=== PATIENT | female | born 1945 | race Caucasian/White ===

== ENCOUNTER 2021-09-06 17:23 | Inpatient (IN) ==
--- NOTE | 2021-09-06 17:42 | Internal Medicine Consult Note ---
HPI Data of Consult Consult date: 09/06/21 Primary Care Provider: Chiqui Davis Consult Narrative History of present illness: Patient states he slipped on a rug wearing new shoes. No head trauma or loss of consciousness. No recent illnesses. Review of Systems: Pertinent positives above. Denies headache/fever/chills/nausea/vomiting/chest or abdominal pain/cough/dyspnea/diarrhea. Remaining 10 point review of system reviewed negative cc:: CC: PFSH PFSH All Active Problems (Updated 09/06/21 @ 19:40 by Terrence Mccullough MD) Closed right hip fracture (Acute) MEDS/ALLERGIES Home Medications and Allergies Home Medications Medication Instructions Recorded Confirmed Type Adults Multivitamin 1 tab 09/06/21 History ascorbic acid (vitamin C) 500 mg PO DAILY 09/06/21 09/06/21 History cholecalciferol (vitamin D3) 1,000 units PO DAILY 09/06/21 09/06/21 History cyanocobalamin (vitamin B-12) 1,000 mcg PO DAILY 09/06/21 09/06/21 History Allergies Allergy/AdvReac Type Severity Reaction Status Date / Time No Known Drug Allergies Allergy Unverified 09/06/21 17:24 EXAM Constitutional Vitals: Temp Pulse Resp BP Pulse Ox 97.6 F 65 18 144/121 95 09/06/21 17:24 09/06/21 17:24 09/06/21 17:24 09/06/21 17:24 09/06/21 17:24 Exam: General: Alert, Awake, No acute Distress, obese Eyes/N/T: EOMI, Head/Neck: neck supple, CV: RRR, No murmurs, normal s1/s2 Pulm: Clear b/l, no wheezing/rhonchi/rales Abd: soft, nontender, +BS x4 Ext: no clubbing/cyanosis/edema Neuro: Alert, no focal deficits, moves all extremities, Skin: warm/dry A/P Narrative A/P Narrative: A/P: *Right hip fracture: -per ortho -pt/ot -CM for placement *ppx: SCD and post-op per ortho Time Spent With Patient Time: Total time spent is greater than 50% in coordination of care (as documented) at patient's floor/unit and/or counseling patient: Total time spent with greater than 50% in coordination of care (as documented) at patient's floor/unit and/or counseling patient:: 35 - 50 minutes
--- NOTE | 2021-09-06 17:44 | Emergency Department Note ---
HPI General Chief complaint: Extremity Injury, Lower Stated complaint: right hip fracture Time Seen by Provider: 09/06/21 17:28 Source: patient and EMS Mode of arrival: EMS Limitations: no limitations History of Present Illness HPI Narrative: 76-year-old female with no past medical history who was transferred to the emergency department after she was seen in [place] earlier today. Patient fell last night and suffered a R intertrochanteric hip fracture. Dr. Santo was consulted and he recommend transfer to the ED for admission and operative repair. Patient states she does not take any medications. Denies hitting her head or other injuries. Related Data Home Medications Medication Instructions Recorded Confirmed Adults Multivitamin 1 tab 09/06/21 ascorbic acid (vitamin C) 500 mg PO DAILY 09/06/21 09/06/21 cholecalciferol (vitamin D3) 1,000 units PO DAILY 09/06/21 09/06/21 cyanocobalamin (vitamin B-12) 1,000 mcg PO DAILY 09/06/21 09/06/21 Allergies Allergy/AdvReac Type Severity Reaction Status Date / Time No Known Drug Allergies Allergy Unverified 09/06/21 17:24 Review of Systems ROS ROS Narrative: Narrative: Constitutional: Denies fever or chills Eyes: Denies vision change ENT ED: Denies throat pain Cardiovascular: Denies chest pain or palpitations Respiratory: Denies shortness of breath or cough Gastrointestinal: Denies abdominal pain, nausea or vomiting Genitourinary: Denies dysuria Musculoskeletal: Denies back pain Integumentary: Denies rash Neurological: Denies headache Psychiatric: Denies anxiety Endocrine: Denies fatigue Hematological/Lymphatic: Denies easy bruising PFSH Narrative Patient History Narrative: Narrative: Medical/Surgical/Family History All Active Problems (Updated 09/06/21 @ 19:40 by Terrence Mccullough MD) Closed right hip fracture (Acute) Social History Smoking Status: Never smoker Exam Narrative Narrative: Narrative: General Limitations: no limitations General appearance: Present alert and in no apparent distress Head Head: Present atraumatic and normocephalic Eye Eye: Present normal appearance, PERRL and EOMI; Absent scleral icterus or conjunctival injection ENT ENT: Present mucous membranes moist Neck Neck: Present normal inspection, full ROM and trachea midline; Absent tenderness Chest Chest: Present symmetric chest wall rise Respiratory Respiratory: Present normal lung sounds bilaterally; Absent respiratory distress, wheezes, stridor, accessory muscle use or prolonged expiratory phase Cardiovascular Cardiovascular: Present regular rate and normal rhythm; Absent systolic murmur or diastolic murmur Adbominal Abdominal: Present soft; Absent distention, tenderness, guarding, rebound, rigidity, organomegaly or mass Extremities Extremities: Absent pedal edema, pretibial edema or calf tenderness Expanded Lower Extremity Hip/Pelvis: Present other (TTP over the anterior and lateral R hip) Knee: Present normal inspection and full ROM; Absent tenderness Ankle: Present normal inspection and full ROM; Absent tenderness Neurovascular/Tendon: Present normal capillary refill; Absent pulse deficit or sensory deficit Neurological Neurological: Present alert, oriented X3 and CN II-XII intact; Absent motor sensory deficit Psychiatric Psychiatric: Present normal affect and normal mood Skin Skin: Present warm (WNL) and dry Course Consultations Consultation #1: Dr. Luque, hospitalist Time: 17:40 Vital Signs Vital signs: Vital Signs Temperature 97.6 F 09/06/21 17:24 Pulse Rate 65 09/06/21 17:24 Respiratory Rate 18 09/06/21 17:24 Blood Pressure 144/121 09/06/21 17:24 Pulse Oximetry (%) 95 09/06/21 17:24 Temperature 97.6 F 09/06/21 17:24 Pulse Rate 65 09/06/21 18:21 Respiratory Rate 18 09/06/21 17:24 Blood Pressure 137/73 09/06/21 18:17 Pulse Oximetry (%) 97 09/06/21 18:21 [facility] Narrative Medical decision making narrative: 76yo F p/w a R hip fracture. No other injuries. Labs obtained at outside hospital appear normal. CXR obtained in the ED which was normal. I spoke with orthopedic PANadir, who states patient does not need any additional imaging of the R hip. EKG with no ischemic changes. Patient endorsed to Dr. Luque for admission. Lab Data Lab results reviewed: Yes I reviewed the patient's lab results. Radiology Data Radiology results reviewed: Yes I reviewed the patient's radiology results. Radiology results narrative: Ordering Physician:Terrence Mccullough M.D. Date of Service:09/06/21 Procedure(s):XR chest 1V CLINICAL INFORMATION: Preop COMPARISON: None. TECHNIQUE: Portable FINDINGS: The heart size, mediastinum and pulmonary vessels are unremarkable. The lungs are clear. There are no effusions. The bones and soft tissues are within normal limits. IMPRESSION: Normal chest. Interpreted and Authenticated by: Leonardo Smith 09/06/21 EKG Data EKG #1: EKG attestation: Yes I reviewed and interpreted this EKG. and Yes There are no EKG findings of acute coronary syndrome EKG results narrative: NSR at [address] elevation or depression. Interpretation: no acute changes Discharge Plan Patient/Caregiver Discharge Instructions Pt seen by RESIDENTIAL INTERIOR DESIGNER/PA only: No Clinical Impression: Closed right hip fracture Patient Disposition: Xfer As Inpt ([facility]) Condition: Fair Discharge Date/Time: 09/06/21 18:25
--- NOTE | 2021-09-06 18:19 | XRay Report ---
CLINICAL INFORMATION: Preop COMPARISON: None. TECHNIQUE: Portable FINDINGS: The heart size, mediastinum and pulmonary vessels are unremarkable. The lungs are clear. There are no effusions. The bones and soft tissues are within normal limits. IMPRESSION: Normal chest. Interpreted and Authenticated by: Leonardo Smith 09/06/21
[2021-09-06] MEDS ORDERED: ceFAZolin 2 GM in DEXTROSE 5% IN WATER 50 ML IV SCH (18:30)
[2021-09-06] MEDS ORDERED: ceFAZolin 1 GM VIAL ONE (18:41)
[2021-09-06] MEDS ORDERED: LIDOCAINE HCL/PF 100 MG/5 ML SYRINGE IV ONE (19:05)
[2021-09-06] MEDS ORDERED: DEXAMETHASONE 10 MG/ML VIAL ONE (19:05)
[2021-09-06] MEDS ORDERED: MAGNESIUM SULFATE 2 GM/50 ML BAG IV ONE (19:05)
[2021-09-06] MEDS ORDERED: GLYCOPYRROLATE 0.2 MG/ML VIAL IV ONE (19:05)
[2021-09-06] MEDS ORDERED: KETAMINE 50 MG/ML Syringe (ANEST) IV ONE (19:05)
[2021-09-06] MEDS ORDERED: ONDANSETRON 4 MG/2 ML VIAL ONE (19:05)
[2021-09-06] MEDS ORDERED: TRANEXAMIC ACID 1,000 MG/10 ML VIAL ONE (19:05)
[2021-09-06] MEDS ORDERED: fentaNYL 100 MCG/2 ML VIAL IV ONE (19:05)
[2021-09-06] MEDS ORDERED: PROPOFOL 200 MG/20 ML VIAL IV ONE (19:05)
[2021-09-06] MEDS ORDERED: NALOXONE HCL 0.4 MG/ML VIAL IV PRN (20:05)
[2021-09-06] MEDS ORDERED: PROMETHAZINE 25 MG/ML VIAL IV PRN (20:05)
[2021-09-06] MEDS ORDERED: IPRATROPIUM/ALBUTEROL 3 ML AMPUL.NEB NEB PRN ×2 (20:05→21:16)
[2021-09-06] MEDS ORDERED: fentaNYL 100 MCG/2 ML VIAL IV PRN (20:05)
[2021-09-06] MEDS ORDERED: LACTATED RINGERS 250 ML IV PRN (20:05)
[2021-09-06] MEDS ORDERED: ACETAMINOPHEN 1,000 MG/100 ML BAG IV ONE (20:05)
[2021-09-06] MEDS ORDERED: MEPERIDINE 25 MG/ML VIAL IV PRN (20:05)
[2021-09-06] MEDS ORDERED: ONDANSETRON 4 MG/2 ML VIAL IV PRN ×2 (20:05→21:16)
[2021-09-06] MEDS ORDERED: METHOCARBAMOL 1,000 MG/10 ML VIAL IV PRN (20:05)
[2021-09-06] MEDS ORDERED: diphenhydrAMINE 50 MG/ML VIAL IV PRN (20:05)
[2021-09-06] MEDS ORDERED: LACTATED RINGERS 1,000 ML IV SCH (20:15)
[2021-09-06] MEDS ORDERED: FLEETS ADULT ENEMA PR PRN (20:30)
[2021-09-06] MEDS ORDERED: HYDROCODONE/APAP 7.5/325MG TABLET PO PRN (20:30)
[2021-09-06] MEDS ORDERED: BISACODYL 10 MG SUPP.RECT PR PRN (20:30)
[2021-09-06] MEDS ORDERED: POLYETHYLENE GLYCOL 3350 17 GM PACKET PO PRN ×2 (20:30→21:16)
[2021-09-06] MEDS ORDERED: MAGNESIUM HYDROXIDE 30 ML ORAL.SUSP PO PRN (20:30)
--- NOTE | 2021-09-06 20:30 | Brief Operative Note ---
Brief Operative Note Date of procedure: 09/06/21 Pre-op diagnosis: Right hip fracture Post-op diagnosis: same Procedure: Right hip hemiarthroplasty Grafts/Implants: Yes Anesthesia: GETA Complications: none Surgeon: Boogie Santo Flat Sorter Processor: Vinay Chairez Estimated blood loss (cc): 200 Condition: stable Disposition: PACU
[2021-09-06] MEDS ORDERED: MAGNESIUM SULFATE 2 GM/50 ML BAG IV PRN (21:16)
[2021-09-06] MEDS ORDERED: HYDROcodone/APAP 5/325MG TABLET PO PRN (21:16)
[2021-09-06] MEDS ORDERED: SENNOSIDES 1 TABLET PO PRN (21:16)
[2021-09-06] MEDS ORDERED: DOCUSATE SODIUM 100 MG CAPSULE PO SCH (21:16)
[2021-09-06] MEDS ORDERED: morphine 4 MG/ML VIAL IV PRN (21:16)
[2021-09-06] MEDS ORDERED: POTASSIUM CHLORIDE 20 MEQ TABLET PO PRN ×2 (21:16)
[2021-09-06] MEDS ORDERED: POTASSIUM CHLORIDE 40 MEQ in DEXTROSE 5% IN WATER 500 ML IV PRN (21:16)
[2021-09-06] MEDS: ASPIRIN 81 MG TAB.CHEW PO SCH (22:36)
[2021-09-06] MEDS: SENNOSIDES 1 TABLET PO SCH (22:36)
[2021-09-06] MEDS: DOCUSATE SODIUM 100 MG CAPSULE PO SCH (22:36)
[2021-09-06] MEDS: ACETAMINOPHEN 325 MG TABLET PO PRN (22:36)
[2021-09-06] MEDS: 0.9 % SODIUM CHLORIDE 10 ML SYRINGE IV SCH (22:37)
[2021-09-06] MEDS: ceFAZolin 1 GM VIAL IV SCH (23:39)
[2021-09-07] MEDS: ceFAZolin 1 GM VIAL IV SCH ×2 (02:51→11:47)
[2021-09-07] MEDS: 0.9 % SODIUM CHLORIDE 10 ML SYRINGE IV SCH ×3 (05:24→20:39)
[2021-09-07 06:38] LABS: Basophils # (Auto) 0.01 K/mcL (0.00-0.30); Basophils % (Auto) 0.1 % (0.0-2.0); Eosinophils # (Auto) 0 K/mcL (0.00-0.70); Eosinophils % (Auto) 0 % (0.0-7.0); Hematocrit 39.9 % (34.1-44.9); Hemoglobin 13.7 g/dL (11.2-15.7); Lymphocytes # (Auto) 0.35 K/mcL (1.50-4.80); Lymphocytes % (Auto) 4.6 % (15.5-49.0); Mean Cell Volume 90.1 fL (80.0-100.0); Mean Corpuscular HGB Conc 34.3 g/dL (31.0-36.0); Mean Platelet Volume 9.6 fL (7.4-10.4); Monocytes # (Auto) 0.24 K/mcL (0.10-0.90); Monocytes % (Auto) 3.2 % (1.0-12.0); Neutrophils % (Auto) 92.1 % (38.0-78.0); Platelet Count 168 K/mcL (140-440); RBC 4.43 M/mcL (3.59-5.38); Red Cell Distribution Width 12.5 % (11.5-14.5); WBC 7.6 K/mcL (4.5-11.0)
[2021-09-07 06:50] LABS: Prothrombin Time 13.4 sec (11.9-14.5)
[2021-09-07 07:03] LABS: ALT/SGPT 16 U/L (<40); AST/SGOT 27 U/L (<32); Albumin 3.6 gm/dL (3.2-5.2); Albumin/Globulin Ratio 1.4 (1.0-2.3); Alkaline Phosphatase 65 U/L (39-117); Bilirubin,Direct < 0.2 mg/dL (0-0.3); Bilirubin,Total 0.4 mg/dL (0.1-1.0); Blood Urea Nitrogen 9 mg/dL (8-23); Calcium 8.6 mg/dL (8.6-10.4); Carbon Dioxide 21 mmol/L (22-30); Chloride 102 mmol/L (96-108); Globulin 2.6 gm/dL (2.2-3.7); Glomerular Filtration Rate 87; Glucose 164 mg/dL (70-105); Lactate Dehydrogenase 242 U/L (135-225); Phosphorous 2.3 mg/dL (2.5-4.5); Triglycerides 88 mg/dL (<150); Uric Acid 5.2 mg/dL (2.5-8.0)
[2021-09-07] MEDS: ASPIRIN 81 MG TAB.CHEW PO SCH ×2 (07:31→20:39)
[2021-09-07] MEDS: DOCUSATE SODIUM 100 MG CAPSULE PO SCH ×2 (07:32→20:39)
--- NOTE | 2021-09-07 08:26 | Internal Med Progress Note ---
SUBJECTIVE Subjective Patient information: Note initiated : 09/07/21 at 8:25 am Service Date, if different from initiated Date: [] Patient: Liliana Hidalgo 76 y/o F admitted on 09/06/21 for right hip fracture. Chief Complaint: [] Interval history: Patient states he slipped on a rug wearing new shoes. No head trauma or loss of consciousness. No recent illnesses. Seen in [place] and [facility] Dr. Santo was contacted for or thopedic surgery. 09/07 Status post ORIF no new complaints overnight events. Constitutional Vitals: Vital Signs Temp Pulse Resp BP Pulse Ox 97.4 F 66 16 101/67 90 09/07/21 07:17 09/07/21 07:17 09/07/21 07:09/07/21 07:09/07/21 07:17 Period Temp Pulse Resp BP Sys/Gonzales Pulse Ox Last 24 Hr 96.6 F-98.7 F 51-73 11-18 101-146/62-121 90-98 Intake and Output 09/06/21 09/07/21 09/07/21 21:59 05:59 13:59 Intake Total 2150 500 Output Total 275 1350 Balance 1875 -850 Weight 92.986 kg Intake & Output: Intake & Output 09/06/21 09/07/21 09/07/21 21:59 05:59 13:59 Intake Total 2150 500 Output Total 275 1350 Balance 1875 -850 Weight 92.986 kg Intake: IV 150 Ancef 2 gm In Dextrose 5% in 50 Water 50 ml @ 100 mls/hr IV PREOP [facility] Rx#:[id number] Oral 500 IV - Manual Only 1999 Output: Urine Catheter Amount 275 1350 Other: Urine Appearance Clear Clear Uretheral (Howard) Clear Urine Color Bright Yellow Bright Yellow Uretheral (Howard) Bright Yellow Exam: General: Alert, Awake, No acute Distress, obese Eyes/N/T: EOMI, Head/Neck: neck supple, CV: RRR, No murmurs, Pulm: Clear b/l, no wheezing/rhonchi/rales Abd: soft, nontender, +BS x4 Ext: no clubbing/cyanosis/edema Neuro: Alert, no focal deficits, moves all extremities, Skin: warm/dry OBJ DATA Labs CBC & Chem 7: 05/18/22 05:21 09/07/21 05:21 Labs: Abnormal Lab Results 09/07/21 09/07/21 05:21 05:21 Neut % (Auto) 92.1 H Lymph % (Auto) 4.6 L Lymph # (Auto) 0.35 L Carbon Dioxide 21 L Glucose 164 H Phosphorus 2.3 L Lactate Dehydrogenase 242 H Meds: Medications Acetaminophen (Acetaminophen 325 Mg Tablet) 650 mg PO Q6HP PRN; Protocol PRN Reason: Per Pain Protocol/Fever > 101 Last Admin: 09/06/21 22:36 Dose: 650 mg Documented by: Hydrocodone Bitart/Acetaminophen (Hydrocodone/Apap 7.5/325mg Tablet) 0 tab PO Q4HP PRN; Protocol PRN Reason: Per Pain Protocol Last Admin: 09/07/21 07:31 Dose: 1 tab Documented by: Albuterol/Ipratropium (Ipratropium/Albuterol 3 Ml Ampul.Neb) 3 ml NEB Q4HP PRN PRN Reason: Shortness Of Breath Ascorbic Acid (Ascorbic Acid 500 Mg Tablet) 500 mg PO DAILY [facility] Aspirin (Aspirin 81 Mg Tab.Chew) 81 mg PO BID [facility] Last Admin: 09/07/21 07:31 Dose: 81 mg Documented by: Bisacodyl (Bisacodyl 10 Mg Supp.Rect) 10 mg KY Q2-3DAYS PRN PRN Reason: Constipation Cefazolin Sodium (Cefazolin 1 Gm Vial) 1 gm IV Q8H [facility] Stop: 09/07/21 11:01 Last Admin: 09/07/21 02:51 Dose: 1 gm Documented by: Cyanocobalamin (Cyanocobalamin (Vitamin B-12) 500 Mcg Tablet) 1,000 mcg PO DAILY [facility] Docusate Sodium (Docusate Sodium 100 Mg Capsule) 100 mg PO BID [facility] Last Admin: 09/07/21 07:32 Dose: 100 mg Documented by: Potassium Chloride 40 meq/ (Dextrose) 520 mls @ 130 mls/hr IV UD PRN PRN Reason: Potassium < 3 Magnesium Sulfate (Magnesium Sulfate) 2 gm in 50 mls @ 50 mls/hr IV UD PRN PRN Reason: Magnesium </= 1.6 Magnesium Hydroxide (Magnesium Hydroxide 30 Ml Oral.Susp) 30 ml PO BIDP PRN PRN Reason: Constipation Morphine Sulfate (Morphine 4 Mg/Ml Vial) 0 mg IV Q3HP PRN PRN Reason: Pain Ondansetron HCl (Ondansetron 4 Mg/2 Ml Vial) 4 mg IV Q4HP PRN PRN Reason: Nausea And Vomiting Polyethylene Glycol (Polyethylene Glycol 3350 17 Gm Packet) 17 gm PO DAILYP PRN PRN Reason: Constipation Potassium Chloride (Potassium Chloride 20 Meq Tablet) 40 meq PO UD PRN PRN Reason: Potssium is 3-3.5 Potassium Chloride (Potassium Chloride 20 Meq Tablet) 40 meq PO UD PRN PRN Reason: Potassium < 3 Senna (Sennosides 1 Tablet) 2 tab PO HS [facility] Last Admin: 09/06/21 22:36 Dose: 2 tab Documented by: Senna (Sennosides 1 Tablet) 2 tab PO DAILYP PRN PRN Reason: Constipation Sodium Biphosphate/Sodium Phosphate (Fleets Adult Enema) 1 dose KY Q3-4DAYS PRN PRN Reason: Constipation Sodium Chloride (0.9 % Sodium Chloride 10 Ml Syringe) 10 ml IV Q8 [facility] Last Admin: 09/07/21 05:24 Dose: 10 ml Documented by: Vitamin D (Vitamin D3 25 Mcg Tablet) 25 mcg PO DAILY [facility] A/P Narrative A/P Narrative: A/P: *Right hip fracture: s/p ORIF (09/06) -per ortho -pt/ot -CM for placement *Obese: *ppx: SCD and post-op per ortho Time Spent With Patient Time: Total time spent is greater than 50% in coordination of care (as documented) at patient's floor/unit and/or counseling patient: QUALITY VTE Deep Vein Thrombosis/Pulmonary Embolism Present on Admission: No
--- NOTE | 2021-09-07 08:32 | Operative Note ---
DATE OF OPERATION: 09/06/2021 PREOPERATIVE DIAGNOSIS: Right femoral neck fracture, transcervical, displaced. POSTOPERATIVE DIAGNOSIS: Right femoral neck fracture, transcervical, displaced. OPERATION PROPOSED: Right hip hemiarthroplasty. OPERATION PERFORMED: Right hip hemiarthroplasty. SURGEON: Boogie Santo M.D. APPRENTICE/LINEMAN: Vinay Chairez PA-C. The PA's assistance was required for the safe and efficient completion of the entire case. This provider's expertise and technical skill were required throughout the case. The PA assisted with preoperative coordination, intraoperative retraction, wound closure, dressing and splint application, as well as postoperative documentation and care coordination. ESTIMATED BLOOD LOSS: 200 mL. INDICATIONS: This is an elderly lady with a displaced femoral neck fracture in need of operative treatment. PROCEDURE IN DETAIL: Informed consent was obtained. She was taken to the operating room and provided appropriate anesthetic and prophylactic antibiotics. She was carefully positioned. A standard posterior approach to the hip was performed. I dissected through the iliotibial band. I cut and released short external rotators. The hip capsule was cut and T'd. Femoral neck cut was refined. I lateralized the approach. I entered the canal and lateralized the approach. I reamed and broached. I then cemented in place a size 6 stem from [employer]. This was paired with a neutral neck and appropriately-sized head ball. The wounds were irrigated thoroughly. I closed the hip capsule with Ethibond 2-0 inverted deep dermal. The iliotibial band was closed with a #1 Vicryl and a Stratafix 2-0 inverted deep dermal and coretta in the skin. The procedure was tolerated well. No complications. GDD:rocio Job ID: [id number] Doc ID: [id number] Boogie Santo MD
--- NOTE | 2021-09-07 08:32 | History and Physical Report ---
DATE OF ADMISSION: 09/06/2021 CHIEF COMPLAINT: Right hip pain. HISTORY OF PRESENT ILLNESS: This is a 76-year-old female who presents to the emergency department complaining of right hip pain after sustaining a fall yesterday evening. We were consulted by the emergency physician of [facility] with the reported right hip fracture. The patient was then transported to [facility] Emergency Department and the patient denies any loss of consciousness prior to the fall. Denies any associated symptoms. She does report early significant pain which occurred mainly after the fall and she is unable to bear weight on the right hip following this fall. MEDICATIONS: Include, multivitamin daily, vitamin C 500 mg p.o. daily, vitamin D3 at 1000 units p.o. daily, and vitamin B12 at 1000 mcg p.o. daily. ALLERGIES: No known drug allergies. REVIEW OF SYSTEMS: Negative except as noted in the HPI. PAST MEDICAL HISTORY: Noncontributory. SOCIAL HISTORY: The patient denies any significant alcohol use. Denies tobacco use or recreational drug use. PHYSICAL EXAMINATION: VITAL SIGNS: Blood pressure is 144/21, pulse is 65, respirations 18, temperature 97.6 degrees Fahrenheit, and the pulse ox 95% on room air. GENERAL: The patient appears comfortable, resting supine currently in her bed. Does not appear to be in any significant distress. HEENT: Head is normocephalic, atraumatic. ENT is otherwise unremarkable. ABDOMEN: Soft, nontender, nondistended. Bowel sounds are present in all 4 quadrants. CARDIOVASCULAR: Heart has regular rate and rhythm without murmur. RESPIRATORY: Lungs are clear to auscultation bilaterally without any wheezes, rhonchi, or rales. NEUROVASCULAR: The patient is alert and oriented x3. Does not have any neurovascular deficits. MUSCULOSKELETAL: Right hip inspection reveals an externally rotated hip with some shortening. The range of motion of hip is limited due to fairly severe tenderness to palpation in the groin over the hip. Right lower extremity neurovascularly intact. IMAGING: Radiographs of the right hip reveal a slightly displaced impacted femoral neck fracture. ASSESSMENT: Right minimally displaced and impacted femoral neck fracture. PLAN: After discussing treatment options with the patient, we will plan to proceed with a right hip hemiarthroplasty. Risks, complications, possible limitations were discussed with the patient. She would like to proceed with surgery. Dr. Santo was consulted and agrees with this plan. We will plan to admit the patient and we will follow her postoperatively. HWIT:annamarie Job ID: [id number] Doc ID: [id number] Vinay Chairez PA-C
[2021-09-07] MEDS: CYANOCOBALAMIN (VITAMIN B-12) 500 MCG TABLET PO SCH (10:12)
[2021-09-07] MEDS: VITAMIN D3 25 MCG TABLET PO SCH (10:12)
[2021-09-07] MEDS: ASCORBIC ACID 500 MG TABLET PO SCH (10:12)
[2021-09-07] MEDS: ACETAMINOPHEN 325 MG TABLET PO PRN (17:47)
--- NOTE | 2021-09-07 18:56 | General Surgery Progress Note ---
SUBJECTIVE Subjective Patient information: Note initiated : 09/07/21 at 6:55 pm Service Date, if different from initiated Date: [] Patient: Liliana Hidalgo 76 y/o F admitted on 09/06/21 for right hip fracture. Chief Complaint: [] Principal diagnosis: right hip fracture Constitutional Vitals: Vital Signs Temp Pulse Resp BP Pulse Ox 97.3 F 74 14 123/63 94 09/07/21 16:00 09/07/21 16:00 09/07/21 16:00 09/07/21 16:00 09/07/21 16:00 Period Temp Pulse Resp BP Sys/Gonzales Pulse Ox Last 24 Hr 96.6 F-98.7 F 51-74 11-17 101-142/62-104 90-98 Intake and Output 09/07/21 09/07/21 09/07/21 05:59 13:59 21:59 Intake Total 500 1400 1200 Output Total 1350 200 Balance -850 1200 1200 Intake & Output: Intake & Output 09/07/21 09/07/21 09/07/21 05:59 13:59 21:59 Intake Total 500 1400 1200 Output Total 1350 200 Balance -850 1200 1200 Intake: Oral 500 1400 1200 Output: Urine Catheter Amount 1350 200 Other: Meal Breakfast Dinner Percent of Meal Consumed 100% 100% Feeding Ability Independent Independent Urine Appearance Clear Clear Clear Uretheral (Howard) Clear Urine Color Bright Yellow Pale Bright Yellow Uretheral (Howard) Pale Urine Odor Normal # Voids 1 A/P Narrative A/P Narrative: post hemiarthroplasty Plan of Treatment: mobilize, dc planning Time Spent With Patient Time: Total time spent is greater than 50% in coordination of care (as documented) at patient's floor/unit and/or counseling patient: Total time spent with greater than 50% in coordination of care (as documented) at patient's floor/unit and/or counseling patient:: less than 15 minutes
[2021-09-07] MEDS: SENNOSIDES 1 TABLET PO SCH (20:39)
[2021-09-08] MEDS: 0.9 % SODIUM CHLORIDE 10 ML SYRINGE IV SCH ×3 (05:50→20:35)
[2021-09-08 07:27] LABS: Hematocrit 38.8 % (34.1-44.9); Hemoglobin 13.1 g/dL (11.2-15.7)
[2021-09-08 08:08] LABS: Prothrombin Time 13.2 sec (11.9-14.5)
--- NOTE | 2021-09-08 08:18 | Internal Med Progress Note ---
SUBJECTIVE Subjective Patient information: Note initiated : 09/08/21 at 8:18 am Service Date, if different from initiated Date: [] Patient: Liliana Hidlago 76 y/o F admitted on 09/06/21 for right hip fracture. Chief Complaint: [] Principal diagnosis: right hip fracture Interval history: Patient states he slipped on a rug wearing new shoes. No head trauma or loss of consciousness. No recent illnesses. Seen in [place] and transferred to [facility]. Dr. Santo was contacted for orthopedic surgery. 09/07 Status post ORIF no new complaints overnight events. 09/08 Patient states poor sleep and feeling tired this morning. Does not feel like doing much with physical therapy. Review of Systems: denies headache/fever/chills/nausea/vomiting/chest or abdominal pain/cough/dyspnea/diarrhea. Otherwise see above. Constitutional Vitals: Vital Signs Temp Pulse Resp BP Pulse Ox 97.7 F 80 16 107/68 89 L 09/08/21 07:38 09/08/21 07:38 09/08/21 07:38 09/08/21 07:38 09/08/21 07:38 Period Temp Pulse Resp BP Sys/Gonzales Pulse Ox Last 24 Hr 97.3 F-98.7 F 65-80 14-17 106-123/63-74 89-94 Intake and Output 09/07/21 09/08/21 09/08/21 21:59 05:59 13:59 Intake Total 1200 300 Output Total 325 352 Balance 875 -52 Weight 90.446 kg Intake & Output: Intake & Output 09/07/21 09/08/21 09/08/21 21:59 05:59 13:59 Intake Total 1200 300 Output Total 325 352 Balance 875 -52 Weight 90.446 kg Intake: Oral 1200 300 Output: Void Amount 325 350 # of times incontinent of urine 2 Other: Meal Dinner Percent of Meal Consumed 100% Feeding Ability Independent Urine Appearance Clear Clear Urine Color Bright Yellow Bright Yellow Urine Odor Normal # Voids 1 1 Exam: General: Alert, Awake, No acute Distress, obese Eyes/N/T: EOMI, Head/Neck: neck supple, CV: RRR, No murmurs, Pulm: Clear b/l, no wheezing/rhonchi/rales Abd: soft, nontender, +BS x4 Ext: no clubbing/cyanosis/edema Neuro: Alert, no focal deficits, moves all extremities, Skin: warm/dry OBJ DATA Labs CBC & Chem 7: 09/08/21 05:25 09/07/21 05:21 Labs: Abnormal Lab Results 09/07/21 09/07/21 05:21 05:21 Neut % (Auto) 92.1 H Lymph % (Auto) 4.6 L Lymph # (Auto) 0.35 L Carbon Dioxide 21 L Glucose 164 H Phosphorus 2.3 L Lactate Dehydrogenase 242 H Meds: Medications Acetaminophen (Acetaminophen 325 Mg Tablet) 650 mg PO Q6HP PRN; Protocol PRN Reason: Per Pain Protocol/Fever > 101 Last Admin: 09/07/21 17:47 Dose: 650 mg Documented by: Hydrocodone Bitart/Acetaminophen (Hydrocodone/Apap 7.5/325mg Tablet) 0 tab PO Q4HP PRN; Protocol PRN Reason: Per Pain Protocol Last Admin: 09/07/21 07:31 Dose: 1 tab Documented by: Albuterol/Ipratropium (Ipratropium/Albuterol 3 Ml Ampul.Neb) 3 ml NEB Q4HP PRN PRN Reason: Shortness Of Breath Ascorbic Acid (Ascorbic Acid 500 Mg Tablet) 500 mg PO DAILY [facility] Last Admin: 09/07/21 10:12 Dose: Not Given Documented by: Aspirin (Aspirin 81 Mg Tab.Chew) 81 mg PO BID [facility] Last Admin: 09/07/21 20:39 Dose: 81 mg Documented by: Bisacodyl (Bisacodyl 10 Mg Supp.Rect) 10 mg ID Q2-3DAYS PRN PRN Reason: Constipation Cyanocobalamin (Cyanocobalamin (Vitamin B-12) 500 Mcg Tablet) 1,000 mcg PO DAILY [facility] Last Admin: 09/07/21 10:12 Dose: Not Given Documented by: Docusate Sodium (Docusate Sodium 100 Mg Capsule) 100 mg PO BID [facility] Last Admin: 09/07/21 20:39 Dose: 100 mg Documented by: Potassium Chloride 40 meq/ (Dextrose) 520 mls @ 130 mls/hr IV UD PRN PRN Reason: Potassium < 3 Magnesium Sulfate (Magnesium Sulfate) 2 gm in 50 mls @ 50 mls/hr IV UD PRN PRN Reason: Magnesium </= 1.6 Magnesium Hydroxide (Magnesium Hydroxide 30 Ml Oral.Susp) 30 ml PO BIDP PRN PRN Reason: Constipation Morphine Sulfate (Morphine 4 Mg/Ml Vial) 0 mg IV Q3HP PRN PRN Reason: Pain Ondansetron HCl (Ondansetron 4 Mg/2 Ml Vial) 4 mg IV Q4HP PRN PRN Reason: Nausea And Vomiting Polyethylene Glycol (Polyethylene Glycol 3350 17 Gm Packet) 17 gm PO DAILYP PRN PRN Reason: Constipation Potassium Chloride (Potassium Chloride 20 Meq Tablet) 40 meq PO UD PRN PRN Reason: Potssium is 3-3.5 Potassium Chloride (Potassium Chloride 20 Meq Tablet) 40 meq PO UD PRN PRN Reason: Potassium < 3 Senna (Sennosides 1 Tablet) 2 tab PO HS [facility] Last Admin: 09/07/21 20:39 Dose: 2 tab Documented by: Senna (Sennosides 1 Tablet) 2 tab PO DAILYP PRN PRN Reason: Constipation Sodium Biphosphate/Sodium Phosphate (Fleets Adult Enema) 1 dose ID Q3-4DAYS PRN PRN Reason: Constipation Sodium Chloride (0.9 % Sodium Chloride 10 Ml Syringe) 10 ml IV Q8 [facility] Last Admin: 09/08/21 05:50 Dose: 10 ml Documented by: Vitamin D (Vitamin D3 25 Mcg Tablet) 25 mcg PO DAILY [facility] Last Admin: 09/07/21 10:12 Dose: Not Given Documented by: A/P Narrative A/P Narrative: A/P: *Right hip fracture: s/p ORIF (09/06) -per ortho -pt/ot -CM for placement *Obese: *ppx: SCD and post-op per ortho Plan of Treatment: mobilize, dc planning Time Spent With Patient Time: Total time spent is greater than 50% in coordination of care (as documented) at patient's floor/unit and/or counseling patient: [facility]AL[facility] VTE Deep Vein Thrombosis/Pulmonary Embolism Present on Admission: No
[2021-09-08] MEDS: ASPIRIN 81 MG TAB.CHEW PO SCH ×2 (08:50→20:33)
[2021-09-08] MEDS: ASCORBIC ACID 500 MG TABLET PO SCH (08:50)
[2021-09-08] MEDS: ACETAMINOPHEN 325 MG TABLET PO PRN ×3 (08:50→20:33)
[2021-09-08] MEDS: CYANOCOBALAMIN (VITAMIN B-12) 500 MCG TABLET PO SCH (08:50)
[2021-09-08] MEDS: VITAMIN D3 25 MCG TABLET PO SCH (08:50)
[2021-09-08] MEDS: DOCUSATE SODIUM 100 MG CAPSULE PO SCH ×2 (08:50→20:33)
--- NOTE | 2021-09-08 10:38 | Discharge Summary ---
Discharge Provider Provider Patient information: Note initiated : 09/08/21 at 10:37 am Service Date, if different from initiated Date: [] Patient: Liliana Hidalgo 76 y/o F admitted on 09/06/21 for right hip fracture. Chief Complaint: [] Date of admission: 09/06/21 21:05 Discharge date: 09/09/21 Primary care physician: Chiqui Davis Consults: 09/06/21 Consult to Physician [CONS] Stat Comment: Consulting Provider: Pop Luque Reason For Exam: Physician to Consult 09/06/21 17:33 Consult to Physician [CONS] Stat Comment: Consulting Provider: Boogie Santo Reason For Exam: Physician to Consult Discharge Meds Discharge Medications Home Medications Adults Multivitamin 1 tab PO QDAY 09/06/21 [History Confirmed 09/06/21 Last Taken 09/04/21 08:00] aspirin 81 mg chewable tablet 81 mg PO BID #60 tab 09/09/21 [Rx Last Taken Unknown] COURSE Hospital Course Hospital course: Interval history: Patient states he slipped on a rug wearing new shoes. No head trauma or loss of consciousness. No recent illnesses. Seen in [place] and transferred to [facility]. Dr. Santo was contacted for orthopedic surgery. 09/07 Status post ORIF no new complaints overnight events. 09/08 Patient states poor sleep and feeling tired this morning. Does not feel like doing much with physical therapy. 09/09 No overnight event or new complaints. Patient stable for discharge A/P: *Right hip fracture: s/p ORIF (09/06) -per ortho -pt/ot -CM for placement *Obese: Discharge diagnosis: Right hip fracture Secondary discharge diagnosis: Obesity Time Spent with Patient Time attestation: Total time spent providing and/or coordinating discharge services: Time spent: Greater than 30 minutes EXAM Constitutional Vitals: Temp Pulse Resp BP Pulse Ox 97.7 F 80 16 107/68 89 L 09/08/21 07:38 09/08/21 07:38 09/08/21 07:38 09/08/21 07:38 09/08/21 07:38 Discharge Data Data Completed and Pending Labs on day of discharge: Labs from last 24 hours 09/08/21 09/08/21 05:25 05:25 Hgb 13.1 Hct 38.8 PT 13.2 INR 1.0 Discharge Plan Patient/Caregiver Discharge Instructions Activity: ambulate only with your walker and increase activity as tolerated Diet: Regular Diet Prescriptions: New aspirin 81 mg Tablet,Chewable 81 mg PO BID Qty: 60 0RF Continued Adults Multivitamin 1 tab PO QDAY 0RF Follow Up Plan Follow up with: Chiqui Davis MD [Primary Care Provider] - Patient Disposition: Xfer SNF Care Plan Goals: progressive mobilization WBAT Hospital Course: uneventful Plan of Treatment: mobilize, dc planning Prognosis: Fair Rehab Potential: Fair I certify that the patient requires SNF services: Yes Overall status at discharge: patient is progressing back to baseline Discharge Orders: Discharge Order (Routine); Ordered 09/09/21 Ordered By: Pop Luque [facility] VTE Deep Vein Thrombosis/Pulmonary Embolism Present on Admission: No
--- NOTE | 2021-09-08 11:44 | EKG ---
[facility] Test Date: 2021-09-06 Pat Name: Liliana Hidalgo Department: ED Room: Gender: Female Bench Assembler: : 1945 Requested By: Terrence Mccullough Order Number: [id number] Reading MD: Leonardo Paredes M.D. Measurements Intervals [place] Rate: 65 P: 32 AK: 170 QRS: -48 QRSD: 98 T: 23 QT: 449 QTc: 467 Interpretive Statements Sinus rhythm Left anterior fascicular block Borderline T wave abnormalities Electronically Signed On 09-08-2021 11:43:46 PDT by Leonardo Paredes M.D. /store/[email or web address]/[id number]
--- NOTE | 2021-09-08 17:30 | Orthopedic Progress Note ---
SUBJECTIVE Subjective Patient information: Note initiated : 09/08/21 at 5:27 pm Service Date, if different from initiated Date: [] Patient: Liliana Hidalgo 76 y/o F admitted on 09/06/21 for right hip fracture. Chief Complaint: [] Principal diagnosis: right hip fracture Interval history: POD 2 s/p right hip hemiarthroplasty, doing well, ready to go home or to SNF. She denies any CP, SUN, nausea, vomiting, fever, or any other acute symptoms. Constitutional Vitals: Vital Signs Temp Pulse Resp BP Pulse Ox 100.2 F H 87 18 107/68 96 09/08/21 17:05 09/08/21 17:05 09/08/21 17:05 09/08/21 17:05 09/08/21 17:05 Period Temp Pulse Resp BP Sys/Gonzales Pulse Ox Last 24 Hr 97.0 F-100.2 F 65-87 14-18 90-110/56-68 89-96 Intake and Output 09/08/21 09/08/21 09/08/21 05:59 13:59 21:59 Intake Total 300 800 Output Total 352 600 Balance -52 200 Weight 199 lb 6.4 oz Patient Weight 09/09/21 05:59 Weight 199 lb 6.4 oz Intake & Output: Intake & Output 09/08/21 09/08/21 09/08/21 05:59 13:59 21:59 Intake Total 300 800 Output Total 352 600 Balance -52 200 Weight 199 lb 6.4 oz Intake: Oral 300 800 Output: Void Amount 350 600 # of times incontinent of urine 2 Other: Meal Lunch Percent of Meal Consumed 100% Urine Appearance Clear Urine Color Bright Yellow Bright Yellow Stool Size Moderate Stool Color Brown # Voids 1 # Bowel Movements 1 Exam: Exam of the right hip reveals dressings dry and intact, NVI in the entire RLE, no calf tenderness OBJ DATA Labs CBC & Chem 7: 09/08/21 05:25 09/07/21 05:21 Labs: Abnormal Lab Results 09/07/21 09/07/21 05:21 05:21 Neut % (Auto) 92.1 H Lymph % (Auto) 4.6 L Lymph # (Auto) 0.35 L Carbon Dioxide 21 L Glucose 164 H Phosphorus 2.3 L Lactate Dehydrogenase 242 H Meds: Medications Acetaminophen (Acetaminophen 325 Mg Tablet) 650 mg PO Q6HP PRN; Protocol PRN Reason: Per Pain Protocol/Fever > 101 Last Admin: 09/08/21 14:02 Dose: 650 mg Documented by: Hydrocodone Bitart/Acetaminophen (Hydrocodone/Apap 7.5/325mg Tablet) 0 tab PO Q4HP PRN; Protocol PRN Reason: Per Pain Protocol Last Admin: 09/07/21 07:31 Dose: 1 tab Documented by: Albuterol/Ipratropium (Ipratropium/Albuterol 3 Ml Ampul.Neb) 3 ml NEB Q4HP PRN PRN Reason: Shortness Of Breath Ascorbic Acid (Ascorbic Acid 500 Mg Tablet) 500 mg PO DAILY [facility] Last Admin: 09/08/21 08:50 Dose: 500 mg Documented by: Aspirin (Aspirin 81 Mg Tab.Chew) 81 mg PO BID [facility] Last Admin: 09/08/21 08:50 Dose: 81 mg Documented by: Bisacodyl (Bisacodyl 10 Mg Supp.Rect) 10 mg [place] Q2-3DAYS PRN PRN Reason: Constipation Cyanocobalamin (Cyanocobalamin (Vitamin B-12) 500 Mcg Tablet) 1,000 mcg PO DAILY [facility] Last Admin: 09/08/21 08:50 Dose: 1,000 mcg Documented by: Docusate Sodium (Docusate Sodium 100 Mg Capsule) 100 mg PO BID [facility] Last Admin: 09/08/21 08:50 Dose: 100 mg Documented by: Potassium Chloride 40 meq/ (Dextrose) 520 mls @ 130 mls/hr IV UD PRN PRN Reason: Potassium < 3 Magnesium Sulfate (Magnesium Sulfate) 2 gm in 50 mls @ 50 mls/hr IV UD PRN PRN Reason: Magnesium </= 1.6 Magnesium Hydroxide (Magnesium Hydroxide 30 Ml Oral.Susp) 30 ml PO BIDP PRN PRN Reason: Constipation Melatonin (Melatonin 3 Mg Tablet) 3 mg PO QHS [facility] Morphine Sulfate (Morphine 4 Mg/Ml Vial) 0 mg IV Q3HP PRN PRN Reason: Pain Ondansetron HCl (Ondansetron 4 Mg/2 Ml Vial) 4 mg IV Q4HP PRN PRN Reason: Nausea And Vomiting Polyethylene Glycol (Polyethylene Glycol 3350 17 Gm Packet) 17 gm PO DAILYP PRN PRN Reason: Constipation Potassium Chloride (Potassium Chloride 20 Meq Tablet) 40 meq PO UD PRN PRN Reason: Potssium is 3-3.5 Potassium Chloride (Potassium Chloride 20 Meq Tablet) 40 meq PO UD PRN PRN Reason: Potassium < 3 Senna (Sennosides 1 Tablet) 2 tab PO HS [facility] Last Admin: 09/07/21 20:39 Dose: 2 tab Documented by: Senna (Sennosides 1 Tablet) 2 tab PO DAILYP PRN PRN Reason: Constipation Sodium Biphosphate/Sodium Phosphate (Fleets Adult Enema) 1 dose [place] Q3-4DAYS PRN PRN Reason: Constipation Sodium Chloride (0.9 % Sodium Chloride 10 Ml Syringe) 10 ml IV Q8 [facility] Last Admin: 09/08/21 14:02 Dose: 10 ml Documented by: Vitamin D (Vitamin D3 25 Mcg Tablet) 25 mcg PO DAILY [facility] Last Admin: 09/08/21 08:50 Dose: 25 mcg Documented by: A/P Assessment and plan (1) History of hemiarthroplasty of right hip: Plan: 1. Plan for discharge to SNF or home 2. PT for strengthening and ambulation WBAT 3. Follow up with [facility] in 2 weeks for staple removal Status: Acute Narrative Plan of Treatment: mobilize, dc planning Time Spent With Patient Time: Total time spent is greater than 50% in coordination of care (as documented) at patient's floor/unit and/or counseling patient:
[2021-09-08] MEDS: SENNOSIDES 1 TABLET PO SCH (20:34)
[2021-09-08] MEDS ORDERED: MELATONIN 3 MG TABLET PO SCH (21:00)
[2021-09-09] MEDS: ACETAMINOPHEN 325 MG TABLET PO PRN (03:48)
--- NOTE | 2021-09-09 06:37 | Orthopedic Progress Note ---
SUBJECTIVE Subjective Patient information: Note initiated : 09/09/21 at 6:35 am Service Date, if different from initiated Date: [] Patient: Liliana Hidalgo 76 y/o F admitted on 09/06/21 for right hip fracture. Chief Complaint: [] Principal diagnosis: right hip fracture Constitutional Vitals: Vital Signs Temp Pulse Resp BP Pulse Ox 98 F 81 18 112/59 93 09/09/21 03:49 09/08/21 20:00 09/09/21 03:49 09/09/21 03:49 09/09/21 03:49 Period Temp Pulse Resp BP Sys/Gonzales Pulse Ox Last 24 Hr 97.0 F-100.2 F 80-87 16-20 90-117/56-68 89-96 Intake and Output 09/08/21 09/09/21 09/09/21 21:59 05:59 13:59 Intake Total 1600 500 Output Total 600 Balance 1000 500 Weight 197 lb 3.2 oz Intake & Output: Intake & Output 09/08/21 09/09/21 09/09/21 21:59 05:59 13:59 Intake Total 1600 500 Output Total 600 Balance 1000 500 Weight 197 lb 3.2 oz Intake: Oral 1600 500 Output: Void Amount 600 Other: Meal Lunch Percent of Meal Consumed 100% Urine Color Bright Yellow Stool Size Moderate Stool Color Brown # Voids 6 # Bowel Movements 1 Extremities Exam Extremities exam: Present Foot pink and warm and neurovascular intact OBJ DATA Labs CBC & Chem 7: 09/08/21 05:25 09/07/21 05:21 Labs: Abnormal Lab Results 09/07/21 09/07/21 05:21 05:21 Neut % (Auto) 92.1 H Lymph % (Auto) 4.6 L Lymph # (Auto) 0.35 L Carbon Dioxide 21 L Glucose 164 H Phosphorus 2.3 L Lactate Dehydrogenase 242 H Meds: Medications Acetaminophen (Acetaminophen 325 Mg Tablet) 650 mg PO Q6HP PRN; Protocol PRN Reason: Per Pain Protocol/Fever > 101 Last Admin: 09/09/21 03:48 Dose: 650 mg Documented by: Hydrocodone Bitart/Acetaminophen (Hydrocodone/Apap 7.5/325mg Tablet) 0 tab PO Q4HP PRN; Protocol PRN Reason: Per Pain Protocol Last Admin: 09/07/21 07:31 Dose: 1 tab Documented by: Albuterol/Ipratropium (Ipratropium/Albuterol 3 Ml Ampul.Neb) 3 ml NEB Q4HP PRN PRN Reason: Shortness Of Breath Ascorbic Acid (Ascorbic Acid 500 Mg Tablet) 500 mg PO DAILY [facility] Last Admin: 09/08/21 08:50 Dose: 500 mg Documented by: Aspirin (Aspirin 81 Mg Tab.Chew) 81 mg PO BID [facility] Last Admin: 09/08/21 20:33 Dose: 81 mg Documented by: Bisacodyl (Bisacodyl 10 Mg Supp.Rect) 10 mg [place] Q2-3DAYS PRN PRN Reason: Constipation Cyanocobalamin (Cyanocobalamin (Vitamin B-12) 500 Mcg Tablet) 1,000 mcg PO DAILY [facility] Last Admin: 09/08/21 08:50 Dose: 1,000 mcg Documented by: Docusate Sodium (Docusate Sodium 100 Mg Capsule) 100 mg PO BID [facility] Last Admin: 09/08/21 20:33 Dose: 100 mg Documented by: Potassium Chloride 40 meq/ (Dextrose) 520 mls @ 130 mls/hr IV UD PRN PRN Reason: Potassium < 3 Magnesium Sulfate (Magnesium Sulfate) 2 gm in 50 mls @ 50 mls/hr IV UD PRN PRN Reason: Magnesium </= 1.6 Magnesium Hydroxide (Magnesium Hydroxide 30 Ml Oral.Susp) 30 ml PO BIDP PRN PRN Reason: Constipation Melatonin (Melatonin 3 Mg Tablet) 3 mg PO QHS [facility] Last Admin: 09/08/21 20:33 Dose: 3 mg Documented by: Morphine Sulfate (Morphine 4 Mg/Ml Vial) 0 mg IV Q3HP PRN PRN Reason: Pain Ondansetron HCl (Ondansetron 4 Mg/2 Ml Vial) 4 mg IV Q4HP PRN PRN Reason: Nausea And Vomiting Polyethylene Glycol (Polyethylene Glycol 3350 17 Gm Packet) 17 gm PO DAILYP PRN PRN Reason: Constipation Potassium Chloride (Potassium Chloride 20 Meq Tablet) 40 meq PO UD PRN PRN Reason: Potssium is 3-3.5 Potassium Chloride (Potassium Chloride 20 Meq Tablet) 40 meq PO UD PRN PRN Reason: Potassium < 3 Senna (Sennosides 1 Tablet) 2 tab PO [facility] Last Admin: 09/08/21 20:34 Dose: Not Given Documented by: Senna (Sennosides 1 Tablet) 2 tab PO DAILYP PRN PRN Reason: Constipation Sodium Biphosphate/Sodium Phosphate (Fleets Adult Enema) 1 dose [place] Q3-4DAYS PRN PRN Reason: Constipation Sodium Chloride (0.9 % Sodium Chloride 10 Ml Syringe) 10 ml IV Q8 [facility] Last Admin: 09/08/21 20:35 Dose: 10 ml Documented by: Vitamin D (Vitamin D3 25 Mcg Tablet) 25 mcg PO DAILY [facility] Last Admin: 09/08/21 08:50 Dose: 25 mcg Documented by: A/P Assessment and plan Plan post hemiarthroplasty - SNF Narrative A/P Narrative: no new issues Plan of Treatment: mobilize, dc planning Time Spent With Patient Time: Total time spent is greater than 50% in coordination of care (as documented) at patient's floor/unit and/or counseling patient:
--- NOTE | 2021-09-09 06:38 | Discharge Plan ---
Discharge Plan Patient/Caregiver Discharge Instructions Activity: ambulate only with your walker and increase activity as tolerated Diet: Regular Diet Prescriptions: Continued Adults Multivitamin 1 tab PO QDAY 0RF Follow Up Plan Follow up with: Chiqui Davis MD [Primary Care Provider] - Patient Disposition: Xfer SNF Plan of Treatment: mobilize, dc planning Prognosis: Fair Rehab Potential: Fair I certify that the patient requires SNF services: Yes Overall status at discharge: patient is progressing back to baseline
--- NOTE | 2021-09-09 06:40 | Discharge Plan ---
Discharge Instructions - [place] Patient Instructions Total Hip Protocol: Follow activity instructions as provided by Physical Therapy. Dressing Care: May shower in 2 days Discharge Plan Patient/Caregiver Discharge Instructions Activity: ambulate only with your walker and increase activity as tolerated Diet: Regular Diet Prescriptions: Continued Adults Multivitamin 1 tab PO QDAY 0RF Follow Up Plan Follow up with: Chiqui Davis MD [Primary Care Provider] - Patient Disposition: Xfer SNF Care Plan Goals: progressive mobilization WBAT Hospital Course: uneventful Plan of Treatment: mobilize, dc planning Prognosis: Fair Rehab Potential: Fair I certify that the patient requires SNF services: Yes Overall status at discharge: patient is progressing back to baseline
--- NOTE | 2021-09-09 06:48 | General Surgery Progress Note ---
SUBJECTIVE Subjective Patient information: Note initiated : 09/09/21 at 6:46 am Service Date, if different from initiated Date: [] Patient: Liliana Hidalgo 76 y/o F admitted on 09/06/21 for right hip fracture. Chief Complaint: [] Principal diagnosis: right hip fracture Interval history: quad weakness secondary to block resolved Constitutional Vitals: Vital Signs Temp Pulse Resp BP Pulse Ox 98 F 81 18 112/59 93 09/09/21 03:49 09/08/21 20:00 09/09/21 03:49 09/09/21 03:49 09/09/21 03:49 Period Temp Pulse Resp BP Sys/Gonzales Pulse Ox Last 24 Hr 97.0 F-100.2 F 80-87 16-20 90-117/56-68 89-96 Intake and Output 09/08/21 09/09/21 09/09/21 21:59 05:59 13:59 Intake Total 1600 500 Output Total 600 Balance 1000 500 Weight 197 lb 3.2 oz Intake & Output: Intake & Output 09/08/21 09/09/21 09/09/21 21:59 05:59 13:59 Intake Total 1600 500 Output Total 600 Balance 1000 500 Weight 197 lb 3.2 oz Intake: Oral 1600 500 Output: Void Amount 600 Other: Meal Lunch Percent of Meal Consumed 100% Urine Color Bright Yellow Stool Size Moderate Stool Color Brown # Voids 6 # Bowel Movements 1 Extremities Exam Extremities exam: Present neurovascular intact A/P Assessment and plan (1) Closed right hip fracture: Status: Acute Plan DC Narrative A/P Narrative: quad function normal Plan of Treatment: mobilize, dc planning Time Spent With Patient Time: Total time spent is greater than 50% in coordination of care (as documented) at patient's floor/unit and/or counseling patient:
--- NOTE | 2021-09-09 06:50 | Discharge Summary ---
Discharge Provider Provider Patient information: Note initiated : 09/09/21 at 6:48 am Service Date, if different from initiated Date: [] Patient: Liliana Hidalgo 76 y/o F admitted on 09/06/21 for right hip fracture. Chief Complaint: [] Date of admission: 09/06/21 21:05 Discharge date: 09/09/21 Primary care physician: Chiqui Davis Admitting clinician: Boogie Santo Consults: 09/06/21 Consult to Physician [CONS] Stat Comment: Consulting Provider: Pop Luque Reason For Exam: Physician to Consult 09/06/21 17:33 Consult to Physician [CONS] Stat Comment: Consulting Provider: Boogie Santo Reason For Exam: Physician to Consult Attending physician on discharge: Boogie Santo COURSE Hospital Course Hospital course: weakness of quads presumed secondary to block Discharge diagnosis: hip fracture Time Spent with Patient Time attestation: Total time spent providing and/or coordinating discharge services: Discharge Instructions - BRANDON Patient Instructions Total Hip Protocol: Follow activity instructions as provided by Physical Therapy. Discharge Plan Patient/Caregiver Discharge Instructions Activity: ambulate only with your walker and increase activity as tolerated Diet: Regular Diet Prescriptions: New aspirin 81 mg Tablet,Chewable 81 mg PO BID Qty: 60 0RF Continued Adults Multivitamin 1 tab PO QDAY 0RF Follow Up Plan Follow up with: Chiqui Davis MD [Primary Care Provider] - Patient Disposition: Xfer SNF Care Plan Goals: progressive mobilization WBAT Hospital Course: uneventful Plan of Treatment: mobilize, dc planning Prognosis: Fair Rehab Potential: Fair I certify that the patient requires SNF services: Yes Overall status at discharge: patient is progressing back to baseline Pending Pending Pending: Diet Regular Diet Start SunSep 07 2031 Acetaminophen (Acetaminophen 325 Mg Tablet) 650 mg PO Q6HP PRN; Protocol PRN Reason: Per Pain Protocol/Fever > 101 Last Admin: 09/09/21 03:48 Dose: 650 mg Documented by: Cosigned by: CLIFF Admin: 09/08/21 20:33 Dose: 650 mg Documented by: Cosigned by: CLIFF Admin: 09/08/21 14:02 Dose: 650 mg Documented by: Admin: 09/08/21 08:50 Dose: 650 mg Documented by: Admin: 09/07/21 17:47 Dose: 650 mg Documented by: Admin: 09/06/21 22:36 Dose: 650 mg Documented by: JANELL Hydrocodone Bitart/Acetaminophen (Hydrocodone/Apap 7.5/325mg Tablet) 0 tab PO Q4HP PRN; Protocol PRN Reason: Per Pain Protocol Last Admin: 09/07/21 07:31 Dose: 1 tab Documented by: ELIDA Ascorbic Acid (Ascorbic Acid 500 Mg Tablet) 500 mg PO DAILY Critical [facility] hospital Admin: 09/08/21 08:50 Dose: 500 mg Documented by: [facility] Admin: 09/07/21 10:12 Dose: Not Given Documented by: ELIDA Aspirin (Aspirin 81 Mg Tab.Chew) 81 mg PO BID [facility] Admin: 09/08/21 20:33 Dose: 81 mg Documented by: Cosigned by: CLIFF Admin: 09/08/21 08:50 Dose: 81 mg Documented by: Admin: 09/07/21 20:39 Dose: 81 mg Documented by: Admin: 09/07/21 07:31 Dose: 81 mg Documented by: Admin: 09/06/21 22:36 Dose: 81 mg Documented by: JANELL Cyanocobalamin (Cyanocobalamin (Vitamin B-12) 500 Mcg Tablet) 1,000 mcg PO DAILY [facility] Admin: 09/08/21 08:50 Dose: 1,000 mcg Documented by: [facility] Admin: 09/07/21 10:12 Dose: Not Given Documented by: ELIDA Docusate Sodium (Docusate Sodium 100 Mg Capsule) 100 mg PO BID [facility] Last Admin: 09/08/21 20:33 Dose: 100 mg Documented by: Cosigned by: CLIFF Admin: 09/08/21 08:50 Dose: 100 mg Documented by: Admin: 09/07/21 20:39 Dose: 100 mg Documented by: Admin: 09/07/21 07:32 Dose: 100 mg Documented by: Admin: 09/06/21 22:36 Dose: 100 mg Documented by: JANELL Melatonin (Melatonin 3 Mg Tablet) 3 mg PO QHS [facility] Last Admin: 09/08/21 20:33 Dose: 3 mg Documented by: Cosigned by: CLIFF Senna (Sennosides 1 Tablet) 2 tab PO HS [facility] Admin: 09/08/21 20:34 Dose: Not Given Documented by: Admin: 09/07/21 20:39 Dose: 2 tab Documented by: Admin: 09/06/21 22:36 Dose: 2 tab Documented by: JANELL Sodium Chloride (0.9 % Sodium Chloride 10 Ml Syringe) 10 ml IV Q8 [facility] Admin: 09/08/21 20:35 Dose: 10 ml Documented by: Cosigned by: CLIFF Admin: 09/08/21 14:02 Dose: 10 ml Documented by: Admin: 09/08/21 05:50 Dose: 10 ml Documented by: Admin: 09/07/21 20:39 Dose: 10 ml Documented by: Admin: 09/07/21 17:47 Dose: 10 ml Documented by: Admin: 09/07/21 05:24 Dose: 10 ml Documented by: Admin: 09/06/21 22:37 Dose: Not Given Documented by: JANELL Vitamin D (Vitamin D3 25 Mcg Tablet) 25 mcg PO DAILY [facility] Admin: 09/08/21 08:50 Dose: 25 mcg Documented by: Admin: 09/07/21 10:12 Dose: Not Given Documented by: ELIDA Shift Summary 09/09/21 05:21 Shift Summary by Vanna Maloney Primary Diagnosis: Right hip fracture/Fall Registration Status: Medical Day of Hospitalization: Admit 09/06 from PACU Date of Surgery (if applicable): 09/06- Right hip hemiarthroplasty/posterior Pertinent Medical Dx/Issue(s): [employer] hearing aids left at home. Fall at home caused fracture. She has falls occasionally at home. Interventions (wounds, diuresis, etc): Call light education given, Posterior right hip dressing with gauze and Medipore tape remains CDI. Tylenol and ice packs. Vital Signs with Trends: VSS on RA Neuro/Mental Status: A&O x4. Calls appropriately. Meds (abo, pain, BP, etc): Minimal pain at rest. Lines/Tubes: IV SL to L FA. O2, liter flow/saturations: RA Date of last BM: 09/08 Elimination (remove Howard within 24h if appropriate): Per toilet. Voiding adequate amounts per toilet Recommendations/questions for MD: Is surgery going to round again before discharge? - the right leg is rotates inward slightly compared to the left, wedge used this afternoon to help the patient avoid crossing her legs. Activity: Up with 1 assist, FWW and gait belt. Walked to and from the bathroom. Expected date of discharge: 09/09 possible Discharge Plan (needs, disposition, etc): Possible SNF[place] Her son is traveling down from [facility] to [facility] to her house while she is here. Initialized on 09/09/21 05:21 - END OF NOTE
[2021-09-09 06:54] LABS: Hematocrit 34.3 % (34.1-44.9); Hemoglobin 11.6 g/dL (11.2-15.7)
[2021-09-09 07:12] LABS: Prothrombin Time 13.7 sec (11.9-14.5)
[2021-09-09] MEDS: ASPIRIN 81 MG TAB.CHEW PO SCH (08:29)
[2021-09-09] MEDS: DOCUSATE SODIUM 100 MG CAPSULE PO SCH (08:29)
[2021-09-09] MEDS: ASCORBIC ACID 500 MG TABLET PO SCH (08:29)
[2021-09-09] MEDS: VITAMIN D3 25 MCG TABLET PO SCH (08:29)
[2021-09-09] MEDS: CYANOCOBALAMIN (VITAMIN B-12) 500 MCG TABLET PO SCH (08:29)
[2021-09-09] MEDS: 0.9 % SODIUM CHLORIDE 10 ML SYRINGE IV SCH (13:29)
== END 2021-09-09 13:40 | DRG 522 ==
LOC: ED 17:23 → SUR 18:24 → MEDSUR 21:05
PROVIDERS: ADMIT Internal Medicine; ATTEND Internal Medicine